=== PATIENT | male | born 1995 | race Caucasian/White ===

== ENCOUNTER 2022-01-18 22:21 | Emergency (ER) | payer OTHER ==
[~2022-01-18] VITALS: Ht 180.3 cm; Wt 108.0 kg
[2022-01-18] MEDS ORDERED: METH-659 PO (22:41)
[2022-01-18 22:42] VITALS: BP 149/93
[2022-01-18] MEDS ORDERED: SODIUM CHLORIDE 0.9% 1,000 ML IV ONE (23:15)
== END 2022-01-19 01:03 | disposition left against medical advice (07) ==
LOC: EMS 22:22
DX: G40.909 Epilepsy, unspecified, not intractable, without status epilepticus (principal); Z88.8 Allergy status to other drugs, medicaments and biological substances
CPT/HCPCS: 70450; 99284